=== PATIENT | male | born 1995 | race Caucasian/White ===

== ENCOUNTER 2021-03-22 20:48 | Emergency (ER) | payer OTHER | END 2021-03-22 21:47 | disposition home or self-care (01) | LOC: ERS 20:48 | DX: S06.9X9A Unspecified intracranial injury with loss of consciousness of unspecified duration, initial encounter (principal); S01.81XA Laceration without foreign body of other part of head, initial encounter; F17.210 Nicotine dependence, cigarettes, uncomplicated; W22.8XXA Striking against or struck by other objects, initial encounter | CPT/HCPCS: 12001 ==

== ENCOUNTER 2025-07-28 13:40 | Emergency (ER) | payer OTHER ==
[2025-07-28] MEDS ORDERED: Ibuprofen 200 MG TAB ONE (13:59)
[2025-07-28] MEDS ORDERED: Lidocaine 1% PF 5 ML VIAL ONE (13:59)
[2025-07-28] MEDS ORDERED: Boostrix 0.5 ML (Tdap) VIAL (>/=7 yrs of age) ONE (14:00)
[2025-07-28] MEDS ORDERED: Bacitracin 1 PK ONE (15:21)
== END 2025-07-28 15:28 | disposition home or self-care (01) ==
LOC: ERS 13:40
DX: S61.213A Laceration without foreign body of left middle finger without damage to nail, initial encounter (principal); S61.217A Laceration without foreign body of left little finger without damage to nail, initial encounter; F17.290 Nicotine dependence, other tobacco product, uncomplicated; W26.9XXA Contact with unspecified sharp object(s), initial encounter; Y99.0 Civilian activity done for income or pay; Z23 Encounter for immunization
CPT/HCPCS: 12002; 90471; 90715